=== PATIENT | male | born 1960 | race Caucasian/White ===

== ENCOUNTER 2017-04-04 16:22 | Inpatient (IN) | payer MEDICARE, BC ==
[2017-04-04] MEDS: SOD CHLORIDE 0.9% 500 ML IV (20:13)
[2017-04-04 20:18] LABS: MODE ROOM AIR; MetHgb Venous 0 %; Sample Type Blood venous; Site VENOUS LINE; Venous COHb 0.4 %; Venous Fraction OxyHgb 57.1 %; Venous Oxygen Sat 57.3 mmHG (55.0-75.0); Venous Total Hemglobin 12.8 g/dl
[2017-04-04 20:24] LABS: ADD MAN DIFF? NO
[2017-04-04 20:34] LABS: WHITE BLOOD COUNT 6.8 10^3/ul (4.8-10.8)
[2017-04-04 20:34] LABS: BASOPHILS % 0.6 % (0.0-2.0); EOSINOPHILS # 0.1 10^3/ul (0.0-0.5); EOSINOPHILS % 1.6 % (0.0-7.0); HEMATOCRIT 34.9 % (42.0-52.0); HEMOGLOBIN 11.7 g/dl (14.0-18.0); LYMPHOCYTES # 1.3 10^3/ul (0.8-2.9); LYMPHOCYTES % 18.6 % (15.0-51.0); MEAN CORPUSCULAR HEMOGLOBIN 30.7 pg (29.0-33.0); MEAN CORPUSCULAR HGB CONC 33.5 g/dl (32.0-37.0); MEAN CORPUSCULAR VOLUME 91.6 fl (82.0-101.0); MEAN PLATELET VOLUME 9.3 fl (7.4-10.4); MONOCYTE # 0.5 10^3/ul (0.3-0.9); MONOCYTES % 7.3 % (0.0-11.0); NEUTROPHIL # 4.9 10^3/ul (1.6-7.5); NEUTROPHILS % 71.6 % (39.0-77.0); PLATELET COUNT 306 10^3/UL (140-415); RED BLOOD COUNT 3.81 10^6/ul (4.70-6.10); RED CELL DISTRIBUTION WIDTH 12.7 % (11.5-14.5)
[2017-04-04 20:54] LABS: ANION GAP 22 (8-16); BLOOD UREA NITROGEN 57 mg/dl (7-20); CALCIUM 8.9 mg/dl (8.4-10.2); CARBON DIOXIDE 21 mmol/L (21-31); CHLORIDE 94 mmol/L (97-110); CREATININE 5.57 mg/dl (0.61-1.24); SODIUM 131 mmol/L (135-144)
[2017-04-04] MEDS ORDERED: ALBUTEROL 0.5% (NEB) 2.5 MG/0.5 ML AMP (21:03)
[2017-04-04] MEDS ORDERED: IPRATROPIUM (NEB) 0.5 MG/2.5 ML AMP (21:03)
[2017-04-04 21:09] LABS: GLUCOSE 481 mg/dl (70-220)
[2017-04-04 21:14] LABS: POTASSIUM 5.9 mmol/L (3.5-5.1)
[2017-04-04] MEDS ORDERED: CEFTRIAXONE 1 GM/50 ML (PMX) 50 ML IVPB (21:35)
[2017-04-04] MEDS: INSULIN LISPRO 100 UNIT/ML VIAL SC (22:54)
[2017-04-04] MEDS ORDERED: ACETAMINOPHEN 325 MG TAB PO (23:00)
[2017-04-04] MEDS ORDERED: ONDANSETRON 4 MG INJ IV (23:00)
[2017-04-04] MEDS: NA POLYST SULFON 15 GM/60 ML BTL PO (23:26)
[2017-04-05] MEDS ORDERED: GLUCAGON 1 MG INJ IM ×2 (03:00)
[2017-04-05] MEDS ORDERED: ONDANSETRON 4 MG INJ IV (03:00)
[2017-04-05] MEDS ORDERED: ALBUTEROL/IPRATROPIUM (NEB) 3 ML AMP HHN (03:00)
[2017-04-05] MEDS ORDERED: GLUCOSE GEL 15 GRAM TUBE BUCCAL ×2 (03:00)
[2017-04-05] MEDS ORDERED: DEXTROSE 50% 50 ML SYRINGE IV ×4 (03:00)
[2017-04-05] MEDS ORDERED: MECLIZINE 25 MG TAB PO (03:00)
[2017-04-05] MEDS ORDERED: NACL 0.9% 3 ML SYG IV (03:00)
[2017-04-05] MEDS ORDERED: GLUCOSE GEL 15 GRAM TUBE PO ×4 (03:00)
[2017-04-05] MEDS ORDERED: ACETAMINOPHEN 325 MG TAB PO (03:00)
[2017-04-05] MEDS: HYDROCODONE/APAP (5/325) TAB PO ×4 (03:12→20:50)
[2017-04-05] MEDS: LINAGLIPTIN 5 MG TABLET PO ×2 (03:12→08:10)
[2017-04-05 06:53] LABS: ADD MAN DIFF? NO
[2017-04-05 07:00] LABS: BASOPHILS % 0.5 % (0.0-2.0); EOSINOPHILS # 0.2 10^3/ul (0.0-0.5); EOSINOPHILS % 2.6 % (0.0-7.0); HEMATOCRIT 32.6 % (42.0-52.0); HEMOGLOBIN 10.7 g/dl (14.0-18.0); LYMPHOCYTES # 1.5 10^3/ul (0.8-2.9); LYMPHOCYTES % 20.7 % (15.0-51.0); MEAN CORPUSCULAR HEMOGLOBIN 30.4 pg (29.0-33.0); MEAN CORPUSCULAR HGB CONC 32.8 g/dl (32.0-37.0); MEAN CORPUSCULAR VOLUME 92.6 fl (82.0-101.0); MEAN PLATELET VOLUME 9.2 fl (7.4-10.4); MONOCYTE # 0.5 10^3/ul (0.3-0.9); MONOCYTES % 6.5 % (0.0-11.0); NEUTROPHIL # 5.1 10^3/ul (1.6-7.5); NEUTROPHILS % 69.3 % (39.0-77.0); PLATELET COUNT 279 10^3/UL (140-415); RED BLOOD COUNT 3.52 10^6/ul (4.70-6.10); RED CELL DISTRIBUTION WIDTH 13.1 % (11.5-14.5)
[2017-04-05 07:00] LABS: WHITE BLOOD COUNT 7.4 10^3/ul (4.8-10.8)
[2017-04-05 07:17] LABS: HEMOGLOBIN A1C 10.7 % (0-5.9)
[2017-04-05 07:41] LABS: ALANINE AMINOTRANSFERASE 27 IU/L (13-69); ALBUMIN 3.2 g/dl (3.3-4.9); ALBUMIN/GLOBULIN RATIO 0.84; ALKALINE PHOSPHATASE 107 IU/L (42-121); ANION GAP 20 (8-16); ASPARTATE AMINO TRANSFERASE 24 IU/L (15-46); BLOOD UREA NITROGEN 56 mg/dl (7-20); CALCIUM 8.8 mg/dl (8.4-10.2); CARBON DIOXIDE 21 mmol/L (21-31); CHLORIDE 102 mmol/L (97-110); CREATININE 6.09 mg/dl (0.61-1.24); GLUCOSE 144 mg/dl (70-220); MAGNESIUM 2.3 mg/dl (1.7-2.5); POTASSIUM 4.9 mmol/L (3.5-5.1); SODIUM 138 mmol/L (135-144)
[2017-04-05] MEDS ORDERED: INSULIN ASPART [NOVOLOG] 3 ML PEN SC (07:55)
[2017-04-05] MEDS: CALCIUM ACETATE 667 MG CAP PO ×3 (08:10→17:03)
[2017-04-05] MEDS: CREON (12k-38k-60k) 1 CAP PO ×3 (08:10→17:03)
[2017-04-05] MEDS: INSULIN GLARGINE [LANtus] 3 ML PEN SC (08:17)
[2017-04-05] MEDS: INSULIN ASPART [NOVOLOG] 3 ML PEN SC ×7 (08:17→20:49)
[2017-04-05] MEDS: ALBUMIN HUMAN 25% 100 ML IV (11:06)
[2017-04-05] MEDS: ASCORBIC ACID 500 MG TAB PO (11:56)
[2017-04-05] MEDS: MULTIVITAMINS THERAPEUTIC TAB PO (11:56)
[2017-04-05] MEDS: ZINC SULFATE 220 MG CAP PO (11:56)
[2017-04-05 13:20] LABS: PREALBUMIN 11.9 mg/dl (17.6-36.0)
[2017-04-06] MEDS: ACCU-CHEK XX ×2 (02:00)
[2017-04-06] MEDS: HYDROCODONE/APAP (5/325) TAB PO ×4 (03:00→20:56)
[2017-04-06 07:51] LABS: ADD MAN DIFF? NO
[2017-04-06 07:59] LABS: WHITE BLOOD COUNT 8.1 10^3/ul (4.8-10.8)
[2017-04-06 07:59] LABS: BASOPHILS % 0.2 % (0.0-2.0); EOSINOPHILS # 0.1 10^3/ul (0.0-0.5); EOSINOPHILS % 1.4 % (0.0-7.0); HEMATOCRIT 30.4 % (42.0-52.0); HEMOGLOBIN 9.9 g/dl (14.0-18.0); LYMPHOCYTES # 1.4 10^3/ul (0.8-2.9); LYMPHOCYTES % 16.7 % (15.0-51.0); MEAN CORPUSCULAR HEMOGLOBIN 29.7 pg (29.0-33.0); MEAN CORPUSCULAR HGB CONC 32.6 g/dl (32.0-37.0); MEAN CORPUSCULAR VOLUME 91.3 fl (82.0-101.0); MEAN PLATELET VOLUME 9.1 fl (7.4-10.4); MONOCYTE # 0.5 10^3/ul (0.3-0.9); NEUTROPHIL # 6.1 10^3/ul (1.6-7.5); NEUTROPHILS % 75.5 % (39.0-77.0); PLATELET COUNT 246 10^3/UL (140-415); RED BLOOD COUNT 3.33 10^6/ul (4.70-6.10)
[2017-04-06] MEDS: CREON (12k-38k-60k) 1 CAP PO ×3 (08:21→17:33)
[2017-04-06] MEDS: ASCORBIC ACID 500 MG TAB PO (08:21)
[2017-04-06] MEDS: ZINC SULFATE 220 MG CAP PO (08:21)
[2017-04-06] MEDS: MULTIVITAMINS THERAPEUTIC TAB PO (08:21)
[2017-04-06] MEDS: LINAGLIPTIN 5 MG TABLET PO (08:21)
[2017-04-06] MEDS: CALCIUM ACETATE 667 MG CAP PO ×3 (08:21→17:33)
[2017-04-06 08:24] LABS: ANION GAP 18 (8-16); BLOOD UREA NITROGEN 34 mg/dl (7-20); CARBON DIOXIDE 26 mmol/L (21-31); CHLORIDE 95 mmol/L (97-110); CREATININE 4.35 mg/dl (0.61-1.24); GLUCOSE 128 mg/dl (70-220); MAGNESIUM 2.1 mg/dl (1.7-2.5); PHOSPHORUS 4.5 mg/dl (2.5-4.9); POTASSIUM 4.3 mmol/L (3.5-5.1); SODIUM 135 mmol/L (135-144)
[2017-04-06] MEDS: INSULIN ASPART [NOVOLOG] 3 ML PEN SC ×7 (08:27→20:57)
[2017-04-06] MEDS: INSULIN GLARGINE [LANtus] 3 ML PEN SC (08:28)
[2017-04-06] MEDS: VANCOMYCIN HCL 250 MG/5ML POSYG PO ×2 (12:19→17:33)
[2017-04-07] MEDS: VANCOMYCIN HCL 250 MG/5ML POSYG PO ×5 (00:34→23:03)
[2017-04-07] MEDS: ACCU-CHEK XX ×2 (02:00)
[2017-04-07] MEDS: HYDROCODONE/APAP (5/325) TAB PO ×4 (03:00→22:57)
[2017-04-07 07:27] LABS: ADD MAN DIFF? NO
[2017-04-07 07:29] LABS: BASOPHILS % 0.3 % (0.0-2.0); EOSINOPHILS # 0.2 10^3/ul (0.0-0.5); EOSINOPHILS % 2.3 % (0.0-7.0); HEMATOCRIT 29.2 % (42.0-52.0); HEMOGLOBIN 9.6 g/dl (14.0-18.0); LYMPHOCYTES # 1.8 10^3/ul (0.8-2.9); LYMPHOCYTES % 23.9 % (15.0-51.0); MEAN CORPUSCULAR HEMOGLOBIN 30.6 pg (29.0-33.0); MEAN CORPUSCULAR HGB CONC 32.9 g/dl (32.0-37.0); MEAN PLATELET VOLUME 9.1 fl (7.4-10.4); MONOCYTE # 0.5 10^3/ul (0.3-0.9); MONOCYTES % 7.2 % (0.0-11.0); NEUTROPHIL # 4.9 10^3/ul (1.6-7.5); PLATELET COUNT 261 10^3/UL (140-415); RED BLOOD COUNT 3.14 10^6/ul (4.70-6.10); RED CELL DISTRIBUTION WIDTH 13.1 % (11.5-14.5)
[2017-04-07 07:29] LABS: WHITE BLOOD COUNT 7.4 10^3/ul (4.8-10.8)
[2017-04-07] MEDS: CREON (12k-38k-60k) 1 CAP PO ×3 (07:55→17:48)
[2017-04-07] MEDS: INSULIN ASPART [NOVOLOG] 3 ML PEN SC ×7 (07:55→20:08)
[2017-04-07 08:06] LABS: ANION GAP 19 (8-16); BLOOD UREA NITROGEN 46 mg/dl (7-20); CALCIUM 8.6 mg/dl (8.4-10.2); CARBON DIOXIDE 24 mmol/L (21-31); CHLORIDE 93 mmol/L (97-110); CREATININE 5.42 mg/dl (0.61-1.24); GLUCOSE 89 mg/dl (70-220); MAGNESIUM 2.2 mg/dl (1.7-2.5); SODIUM 130 mmol/L (135-144)
[2017-04-07 08:09] LABS: POTASSIUM 5.6 mmol/L (3.5-5.1)
[2017-04-07] MEDS: MULTIVITAMINS THERAPEUTIC TAB PO (08:13)
[2017-04-07] MEDS: ZINC SULFATE 220 MG CAP PO (08:13)
[2017-04-07] MEDS: CALCIUM ACETATE 667 MG CAP PO ×3 (08:13→17:49)
[2017-04-07] MEDS: LINAGLIPTIN 5 MG TABLET PO (08:14)
[2017-04-07] MEDS: ASCORBIC ACID 500 MG TAB PO (08:14)
[2017-04-07] MEDS: INSULIN GLARGINE [LANtus] 3 ML PEN SC (08:20)
[2017-04-07] MEDS: NA POLYST SULFON 15 GM/60 ML BTL PO ×2 (11:30→20:06)
[2017-04-07] MEDS: CIPROFLOXACIN 500 MG TAB PO (12:55)
[2017-04-07 13:45] LABS: ANION GAP 19 (8-16); BLOOD UREA NITROGEN 49 mg/dl (7-20); CALCIUM 8.7 mg/dl (8.4-10.2); CARBON DIOXIDE 23 mmol/L (21-31); CHLORIDE 92 mmol/L (97-110); CREATININE 5.81 mg/dl (0.61-1.24); GLUCOSE 90 mg/dl (70-220); POTASSIUM 5.4 mmol/L (3.5-5.1); SODIUM 129 mmol/L (135-144)
[2017-04-07] MEDS: MULTIVIT/CA CARB/B CMPLX/FA TAB PO (17:48)
[2017-04-07 19:32] LABS: ANION GAP 20 (8-16); BLOOD UREA NITROGEN 55 mg/dl (7-20); CALCIUM 8.9 mg/dl (8.4-10.2); CARBON DIOXIDE 19 mmol/L (21-31); CHLORIDE 94 mmol/L (97-110); GLUCOSE 148 mg/dl (70-220); POTASSIUM 5.6 mmol/L (3.5-5.1); SODIUM 127 mmol/L (135-144)
[2017-04-07] MEDS ORDERED: NA POLYST SULFON 15 GM/60 ML BTL (19:52)
[2017-04-07] MEDS: SOD CHLORIDE 0.9% 500 ML IV (23:02)
[2017-04-08] MEDS: ACCU-CHEK XX ×2 (01:55)
[2017-04-08] MEDS: HYDROCODONE/APAP (5/325) TAB PO ×4 (03:56→20:30)
[2017-04-08] MEDS: VANCOMYCIN HCL 250 MG/5ML POSYG PO ×4 (05:29→23:29)
[2017-04-08] MEDS: CIPROFLOXACIN 500 MG TAB PO (05:29)
[2017-04-08] MEDS: INSULIN ASPART [NOVOLOG] 3 ML PEN SC ×7 (07:55→20:33)
[2017-04-08] MEDS: ZINC SULFATE 220 MG CAP PO (09:35)
[2017-04-08] MEDS: CALCIUM ACETATE 667 MG CAP PO ×3 (09:35→17:40)
[2017-04-08] MEDS: ASCORBIC ACID 500 MG TAB PO (09:36)
[2017-04-08] MEDS: LINAGLIPTIN 5 MG TABLET PO (09:36)
[2017-04-08] MEDS: MULTIVIT/CA CARB/B CMPLX/FA TAB PO (09:36)
[2017-04-08] MEDS: CREON (12k-38k-60k) 1 CAP PO ×3 (09:36→17:40)
[2017-04-08] MEDS: MULTIVITAMINS THERAPEUTIC TAB PO (09:36)
[2017-04-08] MEDS: INSULIN GLARGINE [LANtus] 3 ML PEN SC (09:45)
[2017-04-08] MEDS ORDERED: TRIMETHOPRIM/SULFAMETHOX (DS) TAB NGT (11:30)
[2017-04-08] MEDS: COLLAGENASE 30 GM TUBE TOP (15:31)
[2017-04-09] MEDS: ACCU-CHEK XX ×2 (02:00)
[2017-04-09] MEDS: VANCOMYCIN HCL 250 MG/5ML POSYG PO ×3 (06:07→17:42)
[2017-04-09] MEDS: HYDROCODONE/APAP (5/325) TAB PO ×4 (06:08→21:57)
[2017-04-09] MEDS: CIPROFLOXACIN 500 MG TAB PO (06:08)
[2017-04-09 07:50] LABS: ANION GAP 15 (8-16); BLOOD UREA NITROGEN 46 mg/dl (7-20); CALCIUM 8.7 mg/dl (8.4-10.2); CARBON DIOXIDE 31 mmol/L (21-31); CHLORIDE 92 mmol/L (97-110); CREATININE 5.55 mg/dl (0.61-1.24); GLUCOSE 136 mg/dl (70-220); POTASSIUM 4.6 mmol/L (3.5-5.1); SODIUM 133 mmol/L (135-144)
[2017-04-09] MEDS: MULTIVIT/CA CARB/B CMPLX/FA TAB PO (08:10)
[2017-04-09] MEDS: ASCORBIC ACID 500 MG TAB PO (08:10)
[2017-04-09] MEDS: ZINC SULFATE 220 MG CAP PO (08:10)
[2017-04-09] MEDS: LINAGLIPTIN 5 MG TABLET PO (08:11)
[2017-04-09] MEDS: CALCIUM ACETATE 667 MG CAP PO ×3 (08:11→17:42)
[2017-04-09] MEDS: INSULIN GLARGINE [LANtus] 3 ML PEN SC (08:15)
[2017-04-09] MEDS: INSULIN ASPART [NOVOLOG] 3 ML PEN SC ×7 (08:15→20:34)
[2017-04-09] MEDS ORDERED: VANCOMYCIN IV PER PHARMACY XX (09:30)
[2017-04-09] MEDS: CREON (12k-38k-60k) 1 CAP PO ×3 (10:45→17:42)
[2017-04-09] MEDS: VANCOMYCIN 750 MG in DEXTROSE 5% 150 ML IVPB (14:17)
[2017-04-09] MEDS: PIPER-TAZO 2.25 GM (PMX) 50 ML IVPB ×2 (15:36→21:58)
[2017-04-09] MEDS: COLLAGENASE 30 GM TUBE TOP (16:30)
[2017-04-09 17:00] LABS: INR 0.98; PROTIME 13.1 Sec (11.9-14.9)
[2017-04-09 17:01] LABS: PARTIAL THROMBOPLASTIN TIME 33.4 Sec (25.0-35.0)
[2017-04-09] MEDS: morphine 2 MG INJ IV (20:35)
[2017-04-10] MEDS: VANCOMYCIN HCL 250 MG/5ML POSYG PO ×4 (01:31→17:49)
[2017-04-10] MEDS: ACCU-CHEK XX (01:47)
[2017-04-10] MEDS: HYDROCODONE/APAP (5/325) TAB PO ×3 (03:17→16:03)
[2017-04-10] MEDS: PIPER-TAZO 2.25 GM (PMX) 50 ML IVPB ×2 (06:15→14:00)
[2017-04-10] MEDS: INSULIN ASPART [NOVOLOG] 3 ML PEN SC ×6 (08:00→17:49)
[2017-04-10] MEDS: CALCIUM ACETATE 667 MG CAP PO ×3 (08:18→17:42)
[2017-04-10] MEDS: ASCORBIC ACID 500 MG TAB PO (08:19)
[2017-04-10] MEDS: MULTIVIT/CA CARB/B CMPLX/FA TAB PO (08:19)
[2017-04-10] MEDS: LINAGLIPTIN 5 MG TABLET PO (08:19)
[2017-04-10] MEDS: ZINC SULFATE 220 MG CAP PO (08:19)
[2017-04-10] MEDS: morphine 2 MG INJ IV (08:19)
[2017-04-10] MEDS: CREON (12k-38k-60k) 1 CAP PO ×3 (08:29→17:42)
[2017-04-10] MEDS: COLLAGENASE 30 GM TUBE TOP (08:29)
[2017-04-10] MEDS: INSULIN GLARGINE [LANtus] 3 ML PEN SC (08:31)
== END 2017-04-10 19:15 | disposition home health service (06) | DRG 637 ==
LOC: TEL 22:44 → PP2 04-10 07:28 → E/R 16:22 → TEL 04-05 13:33
PROVIDERS: Internal Medicine
PROC: 5A1D70Z Performance of Urinary Filtration, Intermittent, Less than 6 Hours Per Day (ICD-10-PCS; principal; 2017-04-05)
DX: E11.65 Type 2 diabetes mellitus with hyperglycemia (principal); N18.6 End stage renal disease; E43 Unspecified severe protein-calorie malnutrition; L89.312 Pressure ulcer of right buttock, stage 2; A04.72 Enterocolitis due to Clostridium difficile, not specified as recurrent; R64 Cachexia; Z68.1 Body mass index [BMI] 19.9 or less, adult; Z99.2 Dependence on renal dialysis; B96.89 Other specified bacterial agents as the cause of diseases classified elsewhere; R63.0 Anorexia
CPT/HCPCS: 36415; 71045; 73510; 73721; 80048; 80053; 82803; 82962; 83036; 83735; 84100; 84134; 85025; 85610; 85730; 87040; 87045; 87070; 87075; 87081; 87177; 90935; 93005; 96372; 97110; 97116; 97162; 97530; 99285-25; G0378

== ENCOUNTER 2017-04-15 09:49 | Outpatient (CLI) | payer MEDICARE, BC | END 2017-04-16 | disposition home or self-care (01) | LOC: DIB 09:49 | DX: E11.649 Type 2 diabetes mellitus with hypoglycemia without coma (principal); Z79.4 Long term (current) use of insulin ==

== ENCOUNTER 2018-02-06 16:29 | Emergency (ER) | payer MEDICARE, BC ==
[2018-02-06 17:49] LABS: ADD MAN DIFF? NO
[2018-02-06 17:53] LABS: BASOPHILS % 0.2 % (0.0-2.0); EOSINOPHILS # 0.4 10^3/ul (0.0-0.5); HEMATOCRIT 27.8 % (42.0-52.0); HEMOGLOBIN 9.4 g/dl (14.0-18.0); LYMPHOCYTES # 1.2 10^3/ul (0.8-2.9); MEAN CORPUSCULAR HEMOGLOBIN 31.5 pg (29.0-33.0); MEAN CORPUSCULAR HGB CONC 33.8 g/dl (32.0-37.0); MEAN CORPUSCULAR VOLUME 93.3 fl (82.0-101.0); MEAN PLATELET VOLUME 9.5 fl (7.4-10.4); MONOCYTE # 0.6 10^3/ul (0.3-0.9); MONOCYTES % 4.8 % (0.0-11.0); NEUTROPHIL # 9.8 10^3/ul (1.6-7.5); NEUTROPHILS % 81.5 % (39.0-77.0); PLATELET COUNT 328 10^3/UL (140-415); RED BLOOD COUNT 2.98 10^6/ul (4.70-6.10); RED CELL DISTRIBUTION WIDTH 14.6 % (11.5-14.5)
[2018-02-06 18:09] LABS: ANION GAP 11 (5-13); BLOOD UREA NITROGEN 40 mg/dl (7-20); CALCIUM 8.3 mg/dl (8.4-10.2); CARBON DIOXIDE 24 mmol/L (21-31); CHLORIDE 88 mmol/L (97-110); CREATININE 6.12 mg/dl (0.61-1.24); Estimated GFR 10 mL/min (>60); MAGNESIUM 2.2 mg/dl (1.7-2.5); PHOSPHORUS 3.5 mg/dl (2.5-4.9); POTASSIUM 4.8 mmol/L (3.5-5.1); SODIUM 123 mmol/L (135-144)
[2018-02-06 18:13] LABS: MODE ROOM AIR; MetHgb Venous 0.1 %; Sample Type Blood venous; Site VENOUS LINE; Venous COHb 0.3 %; Venous Fraction OxyHgb 82.4 %; Venous Oxygen Sat 82.7 mmHG (55.0-75.0); Venous Total Hemglobin 10.4 g/dl
[2018-02-06 18:18] LABS: GLUCOSE 655 mg/dl (70-220)
[2018-02-06] MEDS: INSULIN LISPRO 100 UNIT/ML VIAL SC ×2 (19:16→20:38)
[2018-02-06] MEDS: INSULIN REGULAR 10 ML INJ IV (19:27)
[2018-02-06 20:44] LABS: GLUCOSE 587 mg/dl (70-220)
== END 2018-02-06 21:15 | disposition home or self-care (01) ==
LOC: E/R 16:29
DX: E10.65 Type 1 diabetes mellitus with hyperglycemia (principal); N18.6 End stage renal disease; E10.22 Type 1 diabetes mellitus with diabetic chronic kidney disease; I12.0 Hypertensive chronic kidney disease with stage 5 chronic kidney disease or end stage renal disease; Z79.4 Long term (current) use of insulin; Z96.641 Presence of right artificial hip joint; Z99.2 Dependence on renal dialysis
CPT/HCPCS: 36415; 71045; 80048; 82803; 82947; 82962; 83735; 84100; 85025; 93005; 96372; 96374; 99285-25